=== PATIENT | male | born 1935 | race Caucasian/White ===

== ENCOUNTER 2020-09-25 17:40 | Inpatient (IN) ==
[2020-09-25 19:00] LABS: Basophils % 0.2 %; Eosinophils % 0.2 %; Immature Granulocytes % 0.4 % (0-4); Mean Corpuscular Volume 86.6 fL (83.0-100.0); Nucleated Red Blood Cells 0.2 /100 WBC (0)
[2020-09-25 19:02] LABS: Hematocrit 39.9 % (37.5-50.1); Hemoglobin 12.4 g/dL (12.9-16.9); Immature Platelets 5.7 % (1.1-6.1); Lymphocytes # 0.8 K/mcL (0.6-4.6); Mean Corpuscular HGB Conc 31.1 g/dL (31.6-35.5); Mean Corpuscular Hemoglobin 26.9 pg (28.0-33.3); Mean Platelet Volume 10.5 fL (9.4-12.4); Monocytes # 0.8 K/mcL (0.0-1.3); Neutrophils # 6.7 K/mcL (1.6-8.9); Platelet Count 176 K/mcL (140-400); Red Blood Count 4.61 M/mcL (4.19-5.50); Red Cell Distribution Width 26.6 % (11.5-14.5); Segmented Neutrophils % 81.2 %; White Blood Count 8.3 K/mcL (4.3-11.1)
[2020-09-25 19:09] LABS: INR 1.4; Prothrombin Time 16.5 Seconds (9.4-12.1)
[2020-09-25 19:28] LABS: Alanine Aminotransferase 18 Units/L (7-52); Albumin 3.6 g/dL (3.5-5.7); Albumin/Globulin Ratio 1.5 (1.1-2.2); Alkaline Phosphatase 69 Units/L (34-104); Aspartate Amino Transferase 20 Units/L (13-39); BUN/Creatinine Ratio 35 (6-26); Bilirubin,Direct 0.6 mg/dL (0.0-0.2); Bilirubin,Indirect 1.1 mg/dL (0.0-1.0); Bilirubin,Total 1.7 mg/dL (0.3-1.0); Blood Urea Nitrogen 38 mg/dL (8-23); Calcium 8.7 mg/dL (8.6-10.3); Carbon Dioxide 23 mEq/L (23-29); Chloride 104 mEq/L (98-107); Globulin 2.4 g/dL (2.4-3.5); Glucose 130 mg/dL (70-105); Magnesium 2.2 mg/dL (1.6-2.6); Osmolality,Calculated 295 (280-300); Potassium 3.6 mEq/L (3.5-5.1); Sodium 137 mEq/L (136-145); Troponin I 0.06 ng/mL (< 0.04); eGFR For African Americans > 60 (> 60); eGFR For Non-African Americans > 60 (> 60)
[2020-09-25] MEDS ORDERED: Azithromycin 500 MG in 0.9 % Sodium Chloride 250 ML IVPB ONE (19:33)
[2020-09-25] MEDS ORDERED: Furosemide 40 MG/4 ML VIAL IVP ONE (19:33)
[2020-09-25] MEDS ORDERED: cefTRIAXone 1,000 MG in Water for inj. (sterile) 10 ML IVP ONE (19:33)
[2020-09-25] MEDS ORDERED: Aspirin 325 MG TABLET PO ONE (19:34)
[2020-09-25 19:55] LABS: Adenovirus Not Detected (Not Detect); Bordetella Pertussis Not Detected (Not Detect); Chlamydophila pneumoniae Not Detected (Not Detect); Coronavirus 229E Not Detected (Not Detect); Coronavirus HKU1 Not Detected (Not Detect); Coronavirus NL63 Not Detected (Not Detect); Coronavirus OC43 Not Detected (Not Detect); Human Metapneumovirus Not Detected (Not Detect); Human Rhinovirus/Enterovirus Not Detected (Not Detect); Influenza A Subtype 2009 H1 Not Detected (Not Detect); Influenza B Not Detected (Not Detect); Mycoplasma pneumoniae Not Detected (Not Detect); Parainfluenza Virus 1 Not Detected (Not Detect); Parainfluenza Virus 2 Not Detected (Not Detect); Parainfluenza Virus 3 Not Detected (Not Detect); Parainfluenza Virus 4 Not Detected (Not Detect); Respiratory Syncytial Virus Not Detected (Not Detect); SARS-CoV-2 Not Detected (Not Detect)
[2020-09-25 20:00] LABS: Hypochromasia Present (Not Present)
[2020-09-25 20:01] LABS: Anisocytosis 2+ (Not Present); Platelet Estimate Normal (Normal)
[2020-09-25] MEDS ORDERED: Naloxone 0.4 MG/ML INJ IVP PRN (22:14)
[2020-09-25] MEDS ORDERED: Ondansetron 4 MG/2 ML VIAL IVP PRN (22:14)
[2020-09-25] MEDS ORDERED: Perflutren Lipid Microsphere 1.3 ML in 0.9 % Sodium Chloride 8.7 ML IVP PRN (22:19)
[2020-09-26] MEDS: Acetaminophen 325 MG TABLET PO PRN ×2 (02:54→16:51)
[2020-09-26 07:15] LABS: INR 1.4; Prothrombin Time 16.5 Seconds (9.4-12.1)
[2020-09-26 07:31] LABS: Immature Granulocytes % 0.5 % (0-4); Lymphocytes % 9.5 %
[2020-09-26 07:33] LABS: Basophils % 0.3 %; Eosinophils # 0.1 K/mcL (0.0-0.6); Hematocrit 38.4 % (37.5-50.1); Immature Platelets 5.3 % (1.1-6.1); Lymphocytes # 0.7 K/mcL (0.6-4.6); Mean Corpuscular HGB Conc 31.3 g/dL (31.6-35.5); Mean Corpuscular Hemoglobin 27.3 pg (28.0-33.3); Mean Corpuscular Volume 87.3 fL (83.0-100.0); Mean Platelet Volume 10.8 fL (9.4-12.4); Monocytes # 0.6 K/mcL (0.0-1.3); Monocytes % 7.7 %; Neutrophils # 6.3 K/mcL (1.6-8.9); Platelet Count 162 K/mcL (140-400); White Blood Count 7.8 K/mcL (4.3-11.1)
[2020-09-26 07:35] LABS: Alanine Aminotransferase 18 Units/L (7-52); Albumin 3.3 g/dL (3.5-5.7); Albumin/Globulin Ratio 1.5 (1.1-2.2); Alkaline Phosphatase 62 Units/L (34-104); Aspartate Amino Transferase 19 Units/L (13-39); BUN/Creatinine Ratio 35 (6-26); Bilirubin,Total 1.5 mg/dL (0.3-1.0); Blood Urea Nitrogen 36 mg/dL (8-23); Calcium 8.5 mg/dL (8.6-10.3); Carbon Dioxide 23 mEq/L (23-29); Chloride 103 mEq/L (98-107); Globulin 2.2 g/dL (2.4-3.5); Glucose 121 mg/dL (70-105); Magnesium 2.1 mg/dL (1.6-2.6); Osmolality,Calculated 296 (280-300); Phosphorous 2.8 mg/dL (2.7-4.5); Potassium 3.3 mEq/L (3.5-5.1); Sodium 138 mEq/L (136-145); Total Protein 5.5 g/dL (6.4-8.9); Troponin I 0.07 ng/mL (< 0.04); eGFR For African Americans > 60 (> 60); eGFR For Non-African Americans > 60 (> 60)
[2020-09-26 07:54] LABS: Anisocytosis 1+ (Not Present); Hypochromasia Present (Not Present); Platelet Estimate Normal (Normal)
[2020-09-26] MEDS ORDERED: Nitroglycerin 0.4 MG TAB.SUBL SL PRN (07:59)
[2020-09-26 08:21] LABS: Hepatitis B Surface Antigen Nonreactive (Nonreactive)
[2020-09-26] MEDS: Furosemide 40 MG/4 ML VIAL IVP SCH ×2 (08:34→22:29)
[2020-09-26] MEDS: *HR* LORazepam 0.5 MG TABLET PO SCH (08:35)
[2020-09-26] MEDS: Gabapentin 300 MG CAPSULE PO SCH ×2 (08:35→22:30)
[2020-09-26 08:50] LABS: Hepatitis B Core IgM Nonreactive (Nonreactive)
[2020-09-26 08:51] LABS: Hepatitis A Antibody IgM Nonreactive (Nonreactive); Hepatitis C Virus Antibody Nonreactive (Nonreactive)
[2020-09-26] MEDS: polyethylene glycoL 3350 17 GM POWD.PACK PO SCH (09:00)
[2020-09-26] MEDS ORDERED: Furosemide 40 MG/4 ML VIAL IVP SCH (09:00)
[2020-09-26] MEDS: *HR* OxyCODONE/APAP 7.5/325 TABLET PO SCH (11:26)
[2020-09-26] MEDS: (Lubiprostone [Amitiza] 24 MCG) PO SCH ×2 (11:32→23:37)
[2020-09-26] MEDS: Fluticasone Propionate Nasal 50 MCG/SPRAY BOTTLE NS SCH ×2 (11:32→22:29)
[2020-09-26] MEDS: *HR* Heparin 5,000 UNIT/ML VIAL SQ SCH (16:52)
[2020-09-26] MEDS ORDERED: Artificial Tears SOLN 15 ML BOTTLE BOTH EYES PRN (21:35)
[2020-09-27 02:12] LABS: BUN/Creatinine Ratio 34 (6-26); Blood Urea Nitrogen 37 mg/dL (8-23); Calcium 8.5 mg/dL (8.6-10.3); Carbon Dioxide 27 mEq/L (23-29); Chloride 103 mEq/L (98-107); Glucose 134 mg/dL (70-105); Magnesium 2.1 mg/dL (1.6-2.6); Osmolality,Calculated 297 (280-300); Phosphorous 2.9 mg/dL (2.7-4.5); Potassium 3.8 mEq/L (3.5-5.1); Sodium 138 mEq/L (136-145); eGFR For African Americans > 60 (> 60); eGFR For Non-African Americans > 60 (> 60)
[2020-09-27 03:35] LABS: Troponin I 0.06 ng/mL (< 0.04)
[2020-09-27] MEDS: Acetaminophen 325 MG TABLET PO PRN ×2 (03:43→17:35)
[2020-09-27] MEDS: *HR* Heparin 5,000 UNIT/ML VIAL SQ SCH ×2 (07:52→17:36)
[2020-09-27] MEDS: polyethylene glycoL 3350 17 GM POWD.PACK PO SCH (10:28)
[2020-09-27] MEDS: *HR* LORazepam 0.5 MG TABLET PO SCH (10:28)
[2020-09-27] MEDS: *HR* OxyCODONE/APAP 7.5/325 TABLET PO SCH (10:28)
[2020-09-27] MEDS: Metoprolol XL (24 HR) Succ 25 MG TAB.ER.24H PO SCH (10:28)
[2020-09-27] MEDS: Furosemide 40 MG/4 ML VIAL IVP SCH (10:28)
[2020-09-27] MEDS: Gabapentin 300 MG CAPSULE PO SCH ×2 (10:28→20:55)
[2020-09-27] MEDS: (Lubiprostone [Amitiza] 24 MCG) PO SCH ×2 (10:28→20:59)
[2020-09-27] MEDS: Fluticasone Propionate Nasal 50 MCG/SPRAY BOTTLE NS SCH ×2 (10:29→20:54)
[2020-09-28] MEDS: *HR* Heparin 5,000 UNIT/ML VIAL SQ SCH ×2 (06:01→16:14)
[2020-09-28 06:47] LABS: BUN/Creatinine Ratio 32 (6-26); Blood Urea Nitrogen 37 mg/dL (8-23); Calcium 8.7 mg/dL (8.6-10.3); Carbon Dioxide 30 mEq/L (23-29); Chloride 103 mEq/L (98-107); Glucose 116 mg/dL (70-105); Magnesium 2.2 mg/dL (1.6-2.6); Osmolality,Calculated 298 (280-300); Phosphorous 3.9 mg/dL (2.7-4.5); Potassium 3.9 mEq/L (3.5-5.1); Sodium 139 mEq/L (136-145); eGFR For African Americans > 60 (> 60); eGFR For Non-African Americans > 60 (> 60)
[2020-09-28] MEDS: Aspirin 81 MG TAB.CHEW PO SCH (08:33)
[2020-09-28] MEDS: lisinopriL 5 MG TABLET PO SCH (08:34)
[2020-09-28] MEDS: polyethylene glycoL 3350 17 GM POWD.PACK PO SCH (08:34)
[2020-09-28] MEDS: *HR* OxyCODONE/APAP 7.5/325 TABLET PO SCH (08:34)
[2020-09-28] MEDS: Gabapentin 300 MG CAPSULE PO SCH ×2 (08:34→19:39)
[2020-09-28] MEDS: Metoprolol XL (24 HR) Succ 25 MG TAB.ER.24H PO SCH (08:34)
[2020-09-28] MEDS: Fluticasone Propionate Nasal 50 MCG/SPRAY BOTTLE NS SCH ×2 (08:35→21:24)
[2020-09-28] MEDS: *HR* LORazepam 0.5 MG TABLET PO SCH (08:35)
[2020-09-28] MEDS ORDERED: Spironolactone 25 MG TABLET PO SCH (09:00)
[2020-09-28] MEDS ORDERED: Furosemide 40 MG/4 ML VIAL IVP SCH (09:00)
[2020-09-28] MEDS ORDERED: Furosemide 40 MG TABLET PO SCH (09:00)
[2020-09-28] MEDS: (Lubiprostone [Amitiza] 24 MCG) PO SCH ×2 (11:30→19:48)
[2020-09-28] MEDS: Acetaminophen 325 MG TABLET PO PRN ×2 (11:35→19:38)
[2020-09-28] MEDS: Furosemide 40 MG TABLET PO SCH (16:14)
[2020-09-28] MEDS ORDERED: *HR* OxyCODONE Immed Rel 5 MG TABLET PO ONE (22:57)
[2020-09-29] MEDS: Melatonin 3 MG TABLET PO PRN (01:51)
[2020-09-29] MEDS: Acetaminophen 325 MG TABLET PO PRN ×3 (01:56→23:02)
[2020-09-29 05:24] LABS: Basophils % 0.6 %; Eosinophils # 0.5 K/mcL (0.0-0.6); Eosinophils % 8.6 %; Hematocrit 36.6 % (37.5-50.1); Hemoglobin 11.2 g/dL (12.9-16.9); Immature Granulocytes % 0.2 % (0-4); Lymphocytes # 0.9 K/mcL (0.6-4.6); Lymphocytes % 13.7 %; Mean Corpuscular HGB Conc 30.6 g/dL (31.6-35.5); Mean Corpuscular Hemoglobin 27.7 pg (28.0-33.3); Mean Corpuscular Volume 90.4 fL (83.0-100.0); Mean Platelet Volume 9.7 fL (9.4-12.4); Monocytes # 0.5 K/mcL (0.0-1.3); Monocytes % 8.1 %; Neutrophils # 4.3 K/mcL (1.6-8.9); Platelet Count 142 K/mcL (140-400); Red Blood Count 4.05 M/mcL (4.19-5.50); Red Cell Distribution Width 26.7 % (11.5-14.5); Segmented Neutrophils % 68.8 %; White Blood Count 6.2 K/mcL (4.3-11.1)
[2020-09-29] MEDS: *HR* Heparin 5,000 UNIT/ML VIAL SQ SCH ×2 (05:43→16:31)
[2020-09-29 05:52] LABS: Anisocytosis 1+ (Not Present); Platelet Estimate Normal (Normal)
[2020-09-29 05:53] LABS: Hypochromasia Present (Not Present)
[2020-09-29 05:56] LABS: Alanine Aminotransferase 12 Units/L (7-52); Albumin 3.1 g/dL (3.5-5.7); Albumin/Globulin Ratio 1.5 (1.1-2.2); Alkaline Phosphatase 55 Units/L (34-104); Aspartate Amino Transferase 17 Units/L (13-39); BUN/Creatinine Ratio 32 (6-26); Bilirubin,Direct 0.3 mg/dL (0.0-0.2); Bilirubin,Indirect 0.6 mg/dL (0.0-1.0); Bilirubin,Total 0.9 mg/dL (0.3-1.0); Blood Urea Nitrogen 36 mg/dL (8-23); Calcium 8.4 mg/dL (8.6-10.3); Carbon Dioxide 29 mEq/L (23-29); Chloride 101 mEq/L (98-107); Globulin 2.1 g/dL (2.4-3.5); Glucose 117 mg/dL (70-105); Magnesium 2.1 mg/dL (1.6-2.6); Osmolality,Calculated 291 (280-300); Potassium 4.4 mEq/L (3.5-5.1); Sodium 136 mEq/L (136-145); Total Protein 5.2 g/dL (6.4-8.9); eGFR For African Americans > 60 (> 60); eGFR For Non-African Americans > 60 (> 60)
[2020-09-29] MEDS: *HR* LORazepam 0.5 MG TABLET PO SCH (07:59)
[2020-09-29] MEDS: Metoprolol XL (24 HR) Succ 25 MG TAB.ER.24H PO SCH (07:59)
[2020-09-29] MEDS: polyethylene glycoL 3350 17 GM POWD.PACK PO SCH ×2 (07:59→08:16)
[2020-09-29] MEDS: Spironolactone 12.5 MG TABLET PO SCH (07:59)
[2020-09-29] MEDS: Gabapentin 300 MG CAPSULE PO SCH ×2 (07:59→21:02)
[2020-09-29] MEDS: lisinopriL 5 MG TABLET PO SCH (07:59)
[2020-09-29] MEDS: Fluticasone Propionate Nasal 50 MCG/SPRAY BOTTLE NS SCH ×2 (07:59→21:04)
[2020-09-29] MEDS: *HR* OxyCODONE/APAP 7.5/325 TABLET PO SCH (07:59)
[2020-09-29] MEDS: Aspirin 81 MG TAB.CHEW PO SCH (07:59)
[2020-09-29] MEDS: Furosemide 40 MG TABLET PO SCH ×2 (07:59→16:31)
[2020-09-29] MEDS: (Lubiprostone [Amitiza] 24 MCG) PO SCH ×2 (08:00→21:04)
[2020-09-30] MEDS: Acetaminophen 325 MG TABLET PO PRN ×2 (05:02→17:33)
[2020-09-30] MEDS: *HR* Heparin 5,000 UNIT/ML VIAL SQ SCH ×2 (05:02→17:33)
[2020-09-30] MEDS: polyethylene glycoL 3350 17 GM POWD.PACK PO SCH (09:10)
[2020-09-30] MEDS: (Lubiprostone [Amitiza] 24 MCG) PO SCH ×2 (09:10→21:31)
[2020-09-30] MEDS: Aspirin 81 MG TAB.CHEW PO SCH (09:13)
[2020-09-30] MEDS: Fluticasone Propionate Nasal 50 MCG/SPRAY BOTTLE NS SCH ×2 (09:13→21:31)
[2020-09-30] MEDS: Metoprolol XL (24 HR) Succ 25 MG TAB.ER.24H PO SCH (09:13)
[2020-09-30] MEDS: lisinopriL 5 MG TABLET PO SCH (09:13)
[2020-09-30] MEDS: Spironolactone 12.5 MG TABLET PO SCH (09:13)
[2020-09-30] MEDS: *HR* OxyCODONE/APAP 7.5/325 TABLET PO SCH (09:13)
[2020-09-30] MEDS: Gabapentin 300 MG CAPSULE PO SCH ×2 (09:13→21:30)
[2020-09-30] MEDS: *HR* LORazepam 0.5 MG TABLET PO SCH (09:13)
[2020-09-30] MEDS: Furosemide 40 MG TABLET PO SCH ×2 (09:13→17:33)
[2020-09-30 09:53] LABS: Basophils % 0.4 %; Eosinophils # 0.3 K/mcL (0.0-0.6); Eosinophils % 3.9 %; Hemoglobin 12.1 g/dL (12.9-16.9); Immature Granulocytes % 0.4 % (0-4); Lymphocytes # 0.7 K/mcL (0.6-4.6); Lymphocytes % 9.6 %; Mean Corpuscular HGB Conc 31.8 g/dL (31.6-35.5); Mean Corpuscular Hemoglobin 27.5 pg (28.0-33.3); Mean Corpuscular Volume 86.4 fL (83.0-100.0); Mean Platelet Volume 9.9 fL (9.4-12.4); Monocytes # 0.5 K/mcL (0.0-1.3); Monocytes % 6.9 %; Platelet Count 166 K/mcL (140-400); Red Cell Distribution Width 26.1 % (11.5-14.5); Segmented Neutrophils % 78.8 %; White Blood Count 7.4 K/mcL (4.3-11.1)
[2020-09-30 10:07] LABS: Neutrophils # 5.8 K/mcL (1.6-8.9)
[2020-09-30 10:14] LABS: % Iron Saturation 13 % (20-55); BUN/Creatinine Ratio 38 (6-26); Blood Urea Nitrogen 37 mg/dL (8-23); Calcium 8.8 mg/dL (8.6-10.3); Carbon Dioxide 26 mEq/L (23-29); Chloride 96 mEq/L (98-107); Glucose 196 mg/dL (70-105); Iron 38 mcg/dL (65-175); Osmolality,Calculated 284 (280-300); Potassium 4.3 mEq/L (3.5-5.1); Sodium 130 mEq/L (136-145); Transferrin 206 mg/dL (203-362); eGFR For African Americans > 60 (> 60); eGFR For Non-African Americans > 60 (> 60)
[2020-09-30 10:32] LABS: Ferritin 68 ng/mL (20-250)
[2020-09-30 10:38] LABS: Folate 8.3 ng/mL (3.0-16.0)
[2020-09-30 12:20] LABS: Anisocytosis 1+ (Not Present); Large Platelets Present (Not Present); Platelet Estimate Normal (Normal)
[2020-10-01 04:14] LABS: Basophils % 0.3 %; Eosinophils # 0.3 K/mcL (0.0-0.6); Eosinophils % 4.4 %; Hematocrit 37.1 % (37.5-50.1); Hemoglobin 11.8 g/dL (12.9-16.9); Immature Granulocytes % 0.3 % (0-4); Lymphocytes # 0.9 K/mcL (0.6-4.6); Mean Corpuscular HGB Conc 31.8 g/dL (31.6-35.5); Mean Corpuscular Hemoglobin 27.3 pg (28.0-33.3); Mean Corpuscular Volume 85.7 fL (83.0-100.0); Mean Platelet Volume 10.4 fL (9.4-12.4); Monocytes # 0.6 K/mcL (0.0-1.3); Monocytes % 9.7 %; Platelet Count 177 K/mcL (140-400); Red Blood Count 4.33 M/mcL (4.19-5.50); Segmented Neutrophils % 71.3 %; White Blood Count 6.5 K/mcL (4.3-11.1)
[2020-10-01 04:20] LABS: Neutrophils # 4.6 K/mcL (1.6-8.9)
[2020-10-01 04:38] LABS: BUN/Creatinine Ratio 39 (6-26); Blood Urea Nitrogen 38 mg/dL (8-23); Carbon Dioxide 29 mEq/L (23-29); Chloride 95 mEq/L (98-107); Glucose 116 mg/dL (70-105); Magnesium 2.1 mg/dL (1.6-2.6); Osmolality,Calculated 282 (280-300); Potassium 4.6 mEq/L (3.5-5.1); Sodium 131 mEq/L (136-145); eGFR For African Americans > 60 (> 60); eGFR For Non-African Americans > 60 (> 60)
[2020-10-01 04:40] LABS: Anisocytosis 1+ (Not Present); Platelet Estimate Normal (Normal); Poikilocytosis 1+ (Not Present)
[2020-10-01] MEDS: *HR* Heparin 5,000 UNIT/ML VIAL SQ SCH ×2 (05:39→16:35)
[2020-10-01] MEDS: Acetaminophen 325 MG TABLET PO PRN (06:06)
[2020-10-01 07:20] LABS: Adenovirus Not Detected (Not Detect); Bordetella Pertussis Not Detected (Not Detect); Coronavirus 229E Not Detected (Not Detect); Coronavirus HKU1 Not Detected (Not Detect); Coronavirus NL63 Not Detected (Not Detect); Coronavirus OC43 Not Detected (Not Detect); Human Metapneumovirus Not Detected (Not Detect); Human Rhinovirus/Enterovirus Not Detected (Not Detect); Influenza A Subtype 2009 H1 Not Detected (Not Detect); Influenza B Not Detected (Not Detect); Parainfluenza Virus 1 Not Detected (Not Detect); Parainfluenza Virus 2 Not Detected (Not Detect); Parainfluenza Virus 3 Not Detected (Not Detect); Parainfluenza Virus 4 Not Detected (Not Detect); Respiratory Syncytial Virus Not Detected (Not Detect); SARS-CoV-2 Not Detected (Not Detect)
[2020-10-01 07:21] LABS: Chlamydophila pneumoniae Not Detected (Not Detect); Mycoplasma pneumoniae Not Detected (Not Detect)
[2020-10-01] MEDS: Aspirin 81 MG TAB.CHEW PO SCH (09:25)
[2020-10-01] MEDS: Furosemide 40 MG TABLET PO SCH ×2 (09:26→16:35)
[2020-10-01] MEDS: *HR* OxyCODONE/APAP 7.5/325 TABLET PO SCH (09:26)
[2020-10-01] MEDS: Spironolactone 12.5 MG TABLET PO SCH (09:26)
[2020-10-01] MEDS: (Lubiprostone [Amitiza] 24 MCG) PO SCH ×2 (09:26→20:34)
[2020-10-01] MEDS: lisinopriL 5 MG TABLET PO SCH (09:26)
[2020-10-01] MEDS: Gabapentin 300 MG CAPSULE PO SCH ×2 (09:26→20:34)
[2020-10-01] MEDS: Metoprolol XL (24 HR) Succ 25 MG TAB.ER.24H PO SCH (09:26)
[2020-10-01] MEDS: *HR* LORazepam 0.5 MG TABLET PO SCH (09:26)
[2020-10-01] MEDS: Fluticasone Propionate Nasal 50 MCG/SPRAY BOTTLE NS SCH ×2 (09:35→20:34)
[2020-10-01] MEDS: polyethylene glycoL 3350 17 GM POWD.PACK PO SCH (09:35)
[2020-10-01] MEDS: Morphine Sulfate 2 MG/ML SYRINGE IVP PRN ×2 (12:16→20:33)
[2020-10-01 16:10] LABS: Bilirubin,Urine Negative (Negative); Blood,Urine Negative (Negative); Clarity,Urine Clear (Clear); Color,Urine Light-Yellow (Yellow); Glucose,Urine (UA) Normal (Normal); Ketones,Urine Negative (Negative); Leukocyte Esterase,Urine Negative (Negative); Nitrite,Urine Negative (Negative); Protein,Urine Negative (Neg-Trace); Specific Gravity,Urine 1.015 (1.010-1.025); Urobilinogen,Urine Normal (Normal)
[2020-10-02] MEDS: Morphine Sulfate 2 MG/ML SYRINGE IVP PRN ×2 (04:21→20:08)
[2020-10-02 04:30] LABS: Basophils % 0.6 %; Eosinophils # 0.3 K/mcL (0.0-0.6); Eosinophils % 4.7 %; Hematocrit 36.4 % (37.5-50.1); Hemoglobin 11.4 g/dL (12.9-16.9); Immature Granulocytes % 0.3 % (0-4); Lymphocytes # 0.9 K/mcL (0.6-4.6); Lymphocytes % 14.2 %; Mean Corpuscular HGB Conc 31.3 g/dL (31.6-35.5); Mean Corpuscular Hemoglobin 27.1 pg (28.0-33.3); Mean Corpuscular Volume 86.5 fL (83.0-100.0); Mean Platelet Volume 9.4 fL (9.4-12.4); Monocytes # 0.6 K/mcL (0.0-1.3); Platelet Count 160 K/mcL (140-400); Red Blood Count 4.21 M/mcL (4.19-5.50); Segmented Neutrophils % 70.2 %; White Blood Count 6.2 K/mcL (4.3-11.1)
[2020-10-02 04:45] LABS: BUN/Creatinine Ratio 39 (6-26); Blood Urea Nitrogen 35 mg/dL (8-23); Calcium 8.8 mg/dL (8.6-10.3); Carbon Dioxide 27 mEq/L (23-29); Chloride 99 mEq/L (98-107); Glucose 120 mg/dL (70-105); Magnesium 2.2 mg/dL (1.6-2.6); Osmolality,Calculated 281 (280-300); Potassium 4.4 mEq/L (3.5-5.1); Sodium 131 mEq/L (136-145); eGFR For African Americans > 60 (> 60); eGFR For Non-African Americans > 60 (> 60)
[2020-10-02] MEDS: *HR* Heparin 5,000 UNIT/ML VIAL SQ SCH ×2 (04:59→16:34)
[2020-10-02 05:06] LABS: Neutrophils # 4.4 K/mcL (1.6-8.9)
[2020-10-02 05:41] LABS: Anisocytosis 2+ (Not Present); Macrocytosis Present (Not Present); Platelet Estimate Normal (Normal)
[2020-10-02] MEDS: Spironolactone 12.5 MG TABLET PO SCH (09:03)
[2020-10-02] MEDS: Furosemide 40 MG TABLET PO SCH ×2 (09:04→16:34)
[2020-10-02] MEDS: lisinopriL 5 MG TABLET PO SCH (09:04)
[2020-10-02] MEDS: Aspirin 81 MG TAB.CHEW PO SCH (09:04)
[2020-10-02] MEDS: Gabapentin 300 MG CAPSULE PO SCH ×2 (09:04→20:07)
[2020-10-02] MEDS: *HR* OxyCODONE/APAP 7.5/325 TABLET PO SCH (09:04)
[2020-10-02] MEDS: *HR* LORazepam 0.5 MG TABLET PO SCH (09:04)
[2020-10-02] MEDS: Metoprolol XL (24 HR) Succ 25 MG TAB.ER.24H PO SCH (09:04)
[2020-10-02] MEDS: polyethylene glycoL 3350 17 GM POWD.PACK PO SCH (09:14)
[2020-10-02] MEDS: (Lubiprostone [Amitiza] 24 MCG) PO SCH ×2 (09:14→20:09)
[2020-10-02] MEDS: Fluticasone Propionate Nasal 50 MCG/SPRAY BOTTLE NS SCH ×2 (09:14→20:07)
[2020-10-02] MEDS: Acetaminophen 325 MG TABLET PO PRN (16:13)
[2020-10-03 02:02] LABS: Basophils % 0.6 %; Eosinophils # 0.2 K/mcL (0.0-0.6); Eosinophils % 3.7 %; Hemoglobin 11.3 g/dL (12.9-16.9); Immature Granulocytes % 0.5 % (0-4); Lymphocytes # 0.8 K/mcL (0.6-4.6); Lymphocytes % 12.4 %; Mean Corpuscular HGB Conc 31.4 g/dL (31.6-35.5); Mean Corpuscular Hemoglobin 27.8 pg (28.0-33.3); Mean Corpuscular Volume 88.5 fL (83.0-100.0); Mean Platelet Volume 10.5 fL (9.4-12.4); Monocytes # 0.6 K/mcL (0.0-1.3); Monocytes % 8.9 %; Platelet Count 175 K/mcL (140-400); Red Blood Count 4.07 M/mcL (4.19-5.50); Red Cell Distribution Width 25.9 % (11.5-14.5); Segmented Neutrophils % 73.9 %; White Blood Count 6.3 K/mcL (4.3-11.1)
[2020-10-03 02:03] LABS: Neutrophils # 4.7 K/mcL (1.6-8.9)
[2020-10-03 02:19] LABS: BUN/Creatinine Ratio 39 (6-26); Blood Urea Nitrogen 38 mg/dL (8-23); Calcium 8.9 mg/dL (8.6-10.3); Carbon Dioxide 28 mEq/L (23-29); Chloride 98 mEq/L (98-107); Glucose 105 mg/dL (70-105); Magnesium 2.1 mg/dL (1.6-2.6); Osmolality,Calculated 283 (280-300); Potassium 4.6 mEq/L (3.5-5.1); Sodium 132 mEq/L (136-145); eGFR For African Americans > 60 (> 60); eGFR For Non-African Americans > 60 (> 60)
[2020-10-03 02:23] LABS: Platelet Estimate Normal (Normal)
[2020-10-03 02:24] LABS: Anisocytosis 1+ (Not Present); Hypochromasia Present (Not Present)
[2020-10-03] MEDS: Morphine Sulfate 2 MG/ML SYRINGE IVP PRN ×2 (03:24→21:27)
[2020-10-03] MEDS: *HR* Heparin 5,000 UNIT/ML VIAL SQ SCH (05:00)
[2020-10-03] MEDS: *HR* LORazepam 2 MG/ML VIAL IVP PRN ×2 (05:01→21:26)
[2020-10-03] MEDS: Spironolactone 12.5 MG TABLET PO SCH (09:03)
[2020-10-03] MEDS: lisinopriL 5 MG TABLET PO SCH (09:03)
[2020-10-03] MEDS: Aspirin 81 MG TAB.CHEW PO SCH (09:03)
[2020-10-03] MEDS: *HR* LORazepam 0.5 MG TABLET PO SCH (09:03)
[2020-10-03] MEDS: Gabapentin 300 MG CAPSULE PO SCH ×2 (09:04→21:27)
[2020-10-03] MEDS: Metoprolol XL (24 HR) Succ 25 MG TAB.ER.24H PO SCH (09:04)
[2020-10-03] MEDS: *HR* OxyCODONE/APAP 7.5/325 TABLET PO SCH (09:04)
[2020-10-03] MEDS: Furosemide 40 MG TABLET PO SCH ×2 (09:04→17:53)
[2020-10-03] MEDS: polyethylene glycoL 3350 17 GM POWD.PACK PO SCH (09:05)
[2020-10-03] MEDS: (Lubiprostone [Amitiza] 24 MCG) PO SCH ×2 (09:23→21:28)
[2020-10-03] MEDS: Fluticasone Propionate Nasal 50 MCG/SPRAY BOTTLE NS SCH ×2 (09:24→21:28)
[2020-10-03] MEDS ORDERED: Furosemide 40 MG/4 ML VIAL IVP PRN (17:46)
[2020-10-03] MEDS: Melatonin 3 MG TABLET PO PRN (21:27)
[2020-10-04] MEDS: *HR* LORazepam 2 MG/ML VIAL IVP PRN (05:45)
[2020-10-04 05:53] LABS: Basophils # 0.1 K/mcL (0.0-0.2); Basophils % 0.8 %; Eosinophils # 0.2 K/mcL (0.0-0.6); Eosinophils % 2.6 %; Hematocrit 37.3 % (37.5-50.1); Hemoglobin 11.4 g/dL (12.9-16.9); Immature Granulocytes % 0.3 % (0-4); Lymphocytes # 0.7 K/mcL (0.6-4.6); Mean Corpuscular HGB Conc 30.6 g/dL (31.6-35.5); Mean Corpuscular Hemoglobin 26.6 pg (28.0-33.3); Mean Corpuscular Volume 86.9 fL (83.0-100.0); Mean Platelet Volume 10.1 fL (9.4-12.4); Monocytes # 0.6 K/mcL (0.0-1.3); Monocytes % 9.3 %; Platelet Count 176 K/mcL (140-400); Red Blood Count 4.29 M/mcL (4.19-5.50); Red Cell Distribution Width 25.9 % (11.5-14.5); White Blood Count 6.5 K/mcL (4.3-11.1)
[2020-10-04 05:54] LABS: BUN/Creatinine Ratio 34 (6-26); Blood Urea Nitrogen 29 mg/dL (8-23); Calcium 9.1 mg/dL (8.6-10.3); Carbon Dioxide 24 mEq/L (23-29); Chloride 99 mEq/L (98-107); Glucose 98 mg/dL (70-105); Magnesium 2.1 mg/dL (1.6-2.6); Osmolality,Calculated 280 (280-300); Potassium 4.2 mEq/L (3.5-5.1); Sodium 132 mEq/L (136-145); eGFR For African Americans > 60 (> 60); eGFR For Non-African Americans > 60 (> 60)
[2020-10-04 07:20] LABS: Anisocytosis 1+ (Not Present); Hypochromasia Present (Not Present); Platelet Estimate Normal (Normal)
[2020-10-04] MEDS: Aspirin 81 MG TAB.CHEW PO SCH (09:45)
[2020-10-04] MEDS: lisinopriL 5 MG TABLET PO SCH (09:45)
[2020-10-04] MEDS: Metoprolol XL (24 HR) Succ 25 MG TAB.ER.24H PO SCH (09:46)
[2020-10-04] MEDS: Gabapentin 300 MG CAPSULE PO SCH ×2 (09:47→09:53)
[2020-10-04] MEDS: (Lubiprostone [Amitiza] 24 MCG) PO SCH (09:47)
[2020-10-04] MEDS: Fluticasone Propionate Nasal 50 MCG/SPRAY BOTTLE NS SCH (09:49)
[2020-10-04] MEDS: Morphine Sulfate 2 MG/ML SYRINGE IVP PRN (10:41)
[2020-10-04 11:43] VITALS: BP 101/51
[2020-10-04] MEDS: Acetaminophen 325 MG TABLET PO PRN (13:46)
== END 2020-10-04 16:24 | disposition hospice, home (50) | DRG 292 ==
LOC: EMEROOARM 17:40 → 2ANU 17:40 → SUATTDRO 21:06 → 2ANU 22:15 → SUATTDRO 09-27 14:16
PROVIDERS: ADMIT Internal Medicine; ATTEND Pharmacist